=== PATIENT | female | born 1935 | race Caucasian/White ===

== ENCOUNTER → 2017-10-19 | Outpatient (CLI) | payer OTHER, BC ==
[~2017-10-19] VITALS: Ht 149.9 cm; Wt 59.1 kg
[~2017-10-19] MED LIST: LISINOPRIL10 MG PO; LO-DOSE ASPIRIN81 M1 PO; RANITIDINE HCL150 M1 PO
[2017-10-19 16:25] VITALS: BP 141/72
== END | disposition home or self-care (01) ==
LOC: IVINF 15:30
DX: M81.0 Age-related osteoporosis without current pathological fracture (principal); Z87.19 Personal history of other diseases of the digestive system
CPT/HCPCS: 96365; J3489